=== PATIENT | female | born 1940 | race Caucasian/White ===

== ENCOUNTER 2017-12-29 12:25 | Inpatient (IN) | payer OTHER, BC ==
--- NOTE | 2017-12-29 12:39 | PDOC ---
Attending Attestation - Resident Resident Name: Domingo Mckeon - HPI HPI: 12/29/17 14:51 Pt presents to the ED complaining of coffee grouind emesis that started acutely this AM. Denies bloody bowel movements. Denies abdominal pain. Denies fevers , denies prior episodes of GI bleed. - Physicial Exam PE: 12/29/17 14:52 Agree with residet exam. Patient is alert and oriented and in no acute distress. ABdomen is soft non tender and non distended. + coffee ground emesis in face and on hair. PAtient refusing rectal exam. - Medical Decision Making 12/29/17 14:53 PT presents to the ED complaining of coffee ground emesis. Multiple episodes prior to admission, at least 300 cc as per EMS. Hemodynamically stable with stable HGB, but given her co-morbidities and the multiple episodes of emesis, will consult ICU. STarted on protonix bolus and drip. <Kalyani Winter - Last Filed: 12/29/17 14:50> - ED Attending Attestation I have performed the following: I have examined & evaluated the patient, The case was reviewed & discussed with the resident, I agree w/resident's findings & plan, Exceptions are as noted - HPI HPI: 12/29/17 14:58 The patient is a 77 year old female, with a significant past medical history of diabetes, hypertension, and hypothyroidism, who presents to the emergency department with, coffee ground emesis. As per EMS, she vomited 300cc of coffee ground emesis prior to her presentation. She did not have any bowel movements today. She denies any abdominal pain. She denies recent fevers, chills, headache or dizziness. She denies recent dysuria, frequency, urgency or hematuria. She denies recent chest pain or shortness of breath. <India Ortiz - Last Filed: 12/29/17 14:58>
[2017-12-29] MEDS ORDERED: PANTOPRAZOLE SODIUM 40 MG VIAL IVPUSH ONE (12:40)
[2017-12-29] MEDS ORDERED: PANTOPRAZOLE SODIUM 80 MG in SODIUM CHLORIDE 100 ML IVPB SCH (12:45)
--- NOTE | 2017-12-29 12:48 | PDOC ---
History of Present Illness - General Stated Complaint: Nausea/Vomiting Time Seen by Provider: 12/29/17 12:39 - History of Present Illness Initial Comments: 77 year old with PMH of HTN and NIDDM presenting with coffee ground emesis 2 hours prior to presentation. Patient insists that she is "fine" ut admits to dark coffee ground emesis which is apparent around her mouth. She is easily agitated and refuses certain care measures. She does have a mild headache. However, she denies, chest pain, diarrhea, fevers, chills, cough, SOB, or other symptoms. She has never had this issue before. 12/29/17 14:34 Past History - Past Medical History Allergies/Adverse Reactions: Allergies Allergy/AdvReac Type Severity Reaction Status Date / Time linagliptin [From Tradjenta] Allergy Mild Rash Verified 12/29/17 12:50 amoxicillin [Amoxicillin] Allergy Verified 12/29/17 12:50 ciprofloxacin [From Cipro] Allergy Verified 12/29/17 12:50 ciprofloxacin HCl Allergy Verified 12/29/17 12:50 [From Cipro] doxycycline Allergy Verified 12/29/17 12:50 iron Allergy Verified 12/29/17 12:50 metformin Allergy Verified 12/29/17 12:50 scopolamine Allergy Verified 12/29/17 12:50 [From Transderm-Scop] lactose AdvReac Verified 12/29/17 12:50 Home Medications: Ambulatory Orders Unobtainable 12/29/17 Diabetes: Yes (Type 2) HTN: Yes Thyroid Disease: Yes (Hypothyroidism) - Suicide/Smoking/Psychosocial Hx Smoking History: Never smoked Have you smoked in the past 12 months: No Number of Cigarettes Smoked Daily: 0 Hx Alcohol Use: No Drug/Substance Use Hx: No Substance Use Type: None Review of Systems - Review of Systems Constitutional: No: Chills, Diaphoresis, Fever, Loss of Appetite HEENTM: No: Blurred Vision, Tearing Respiratory: No: Cough, Shortness of Breath, Wheezing Cardiac (ROS): No: Chest Pain, Irregular Heart Rate, Chest Tightness ABD/GI: Yes: Nausea, Vomiting. No: Blood Streaked Bowels, Diarrhea, Poor Fluid Intake, Abdominal cramping : No: Dysuria, Discharge, Frequency Integumentary: No: Bruising, Change in Color, Lesions, Lumps Neurological: Yes: Headache. No: Numbness, Paresthesia Psychiatric: No: Anxiety, Depression Hematologic/Lymphatic: Yes: Easy Bleeding. No: Anemia, Blood Clots *Physical Exam - Physical Exam General Appearance: Yes: Nourished, Appropriately Dressed, Obese. No: Apparent Distress HEENT: positive: EOMI, ALEXANDRO, Normal Voice. negative: Normal ENT Inspection ( dark coffee grounds in mouth and around mouth) Neck: positive: Trachea midline, Normal Thyroid, Supple. negative: Tender, Rigid Respiratory/Chest: positive: Lungs Clear, Normal Breath Sounds. negative: Chest Tender, Respiratory Distress, Accessory Muscle Use Cardiovascular: positive: Regular Rhythm, Regular Rate Gastrointestinal/Abdominal: positive: Normal Bowel Sounds, Flat, Soft. negative : Tender Rectal Exam: positive: deferred Lymphatic: negative: Adenopathy, Tenderness Musculoskeletal: positive: Normal Inspection. negative: Decreased Range of Motion Extremity: positive: Normal Capillary Refill, Normal Inspection, Normal Range of Motion. negative: Tender Integumentary: positive: Normal Color, Dry, Warm Neurologic: positive: Fully Oriented, Alert, Normal Mood/Affect, Normal Response. negative: Motor Strength 5/5 (overlal slightly weak) ED Treatment Course - LABORATORY CBC & Chemistry Diagram: 12/29/17 13:45 12/29/17 13:45 Medical Decision Making - Medical Decision Making 77 year old with coffee ground emesis over the past two hours with no known episodes in the past. VSS and labs WNL. ICU team evaluated patient and they feel that he is not a candidate for the ICU. Patient refused rectal exam to multiple providers. Will admit patient to med surg. Signed patient out to [facility] and spoke to Dr. Musa with consults placed. 12/29/17 14:57 *DC/Admit/Observation/Transfer Diagnosis at time of Disposition: UGIB (upper gastrointestinal bleed), Coffee ground emesis, LILA (acute kidney injury) - Discharge Dispostion Condition at time of disposition: Stable Decision to Admit order: Yes - Referrals Referrals: Maury Chase MD [Primary Care Provider] - - Patient Instructions - Post Discharge Activity
[2017-12-29] MEDS ORDERED: PANTOPRAZOLE SODIUM 40 MG VIAL ONE ×2 (12:59)
[2017-12-29] MEDS ORDERED: ONDANSETRON 4 MG/2 ML VIAL ONE (13:00)
[2017-12-29 13:57] LABS: BASO % 0.3 % (0-2.0); EOS % 0.1 % (0-4.5); HEMATOCRIT 42.9 % (32.4-45.2); HEMOGLOBIN 14.1 GM/dL (10.7-15.3); LYMPH % 4.7 % (8-40); MCH 29.9 pg (25.7-33.7); MCHC 32.9 g/dl (32.0-36.0); MEAN CELL VOLUME 90.8 fl (80-96); MEAN PLT VOLUME 8.6 fl (7.5-11.1); MONO % 2.6 % (3.8-10.2); NEUT % 92.3 % (42.8-82.8); PLATELET COUNT 149 K/MM3 (134-434); RBC 4.72 M/mm3 (3.60-5.2); WHITE BLOOD COUNT 6.8 K/mm3 (4.0-10.0)
[2017-12-29 14:09] LABS: INR 1.21 (0.83-1.09); PROTHROMBIN TIME (PATIENT) 14.3 SEC (9.7-13.0)
[2017-12-29 14:37] LABS: ALBUMIN 3.2 g/dl (3.4-5.0); ALK PHOS 165 U/L (45-117); ANION GAP 8 MMOL/L (8-16); BILIRUBIN,TOTAL 0.7 mg/dL (0.2-1); BLOOD UREA NITROGEN 16 mg/dL (7-18); CALCIUM 8.5 mg/dL (8.5-10.1); CHLORIDE 94 mmol/L (98-107); CO2 32 mmol/L (21-32); GLUCOSE,RANDOM 211 mg/dL (74-106); POTASSIUM 4.2 mmol/L (3.5-5.1); SGOT/AST 24 U/L (15-37); SGPT/ALT 13 U/L (13-61); SODIUM 133 mmol/L (136-145); TOT PROT 7.5 g/dl (6.4-8.2)
--- NOTE | 2017-12-29 15:00 | PN ---
Progress Note (short form) - Note Progress Note: Called to evaluate patient for acute GI bleed. Patient is a 77 year old female with a history of HTN, DMII, and "hemochromatosis", as per patient, presents to ER after an episode of coughing up blood, coffe ground emesis. Patient states that after eating roasted potatoes she felt nauseated and started dry heaving. She said coughed up a small amount of bright red blood, less that a quarter cup. A couple hr later she coughed up coffee grounds, less that a quarter cup. Patient denies taking any NSAIDs. Currently she is hemodynamiclly stable. Hemoglobin 14. Stable no active bleed at this time A/P Acute upper GI bleed. Stable; no active signs of bleed. Management for bleed; protonix drip. GI consult for possible endoscopy. No indication for ICU admission at this time.
--- NOTE | 2017-12-29 16:47 | CON.ID ---
Consult Consult Specialty:: infectious diseases Referred by:: Dr.Martin Tanner Reason for Consultation:: vomiting,hemoptsys, - History of Present Illness Chief Complaint: weakness,vomiting History of Present Illness: 77 year old female with a history of HTN, DMII, and "hemochromatosis", as per patient, presents to ER after an episode of coughing up blood, coffe ground emesis. Patient states that after eating roasted potatoes she felt nauseated and started dry heaving. She said coughed up a small amount of bright red blood , less that a quarter cup. A couple hr later she coughed up coffee grounds, less that a quarter cup. Patient denies taking any NSAIDs. patient mentions that she currently feels fine her family and the aid is in the room - History Source History Provided By: Patient, Family Member Limitations to Obtaining History: No Limitations - Alcohol/Substance Use Hx Alcohol Use: No - Smoking History Smoking history: Never smoked Have you smoked in the past 12 months: No Aproximately how many cigarettes per day: 0 Home Medications - Allergies Allergies/Adverse Reactions: Allergies Allergy/AdvReac Type Severity Reaction Status Date / Time linagliptin [From Tradjenta] Allergy Mild Rash Verified 12/29/17 12:50 amoxicillin [Amoxicillin] Allergy Verified 12/29/17 12:50 ciprofloxacin [From Cipro] Allergy Verified 12/29/17 12:50 ciprofloxacin HCl Allergy Verified 12/29/17 12:50 [From Cipro] doxycycline Allergy Verified 12/29/17 12:50 iron Allergy Verified 12/29/17 12:50 metformin Allergy Verified 12/29/17 12:50 scopolamine Allergy Verified 12/29/17 12:50 [From Transderm-Scop] lactose AdvReac Verified 12/29/17 12:50 - Home Medications Home Medications: Ambulatory Orders Furosemide [Lasix -] 40 mg PO BID 12/30/17 Glipizide 5 mg PO DAILY 12/30/17 Lesinurad [Zurampic] 200 mg PO DAILY 12/30/17 Levothyroxine [Synthroid -] 0.1 mg PO DAILY 12/30/17 Metoprolol Succinate [Toprol XL -] 100 mg PO BID 12/30/17 Review of Systems - Review of Systems Constitutional: reports: No Symptoms Eyes: reports: No Symptoms HENT: reports: No Symptoms Neck: reports: No Symptoms Cardiovascular: reports: No Symptoms Respiratory: reports: No Symptoms Gastrointestinal: reports: Abdominal Pain, Vomiting, Vomiting Blood Genitourinary: reports: No Symptoms Musculoskeletal: reports: No Symptoms Integumentary: reports: No Symptoms Neurological: reports: No Symptoms Endocrine: reports: No Symptoms Hematology/Lymphatic: reports: No Symptoms Psychiatric: reports: No Symptoms Physical Exam Vital Signs: Vital Signs Temperature 96.3 F L 12/29/17 16:22 Pulse Rate 78 12/29/17 16:22 Respiratory Rate 18 12/29/17 16:22 Blood Pressure 134/89 12/29/17 16:22 O2 Sat by Pulse Oximetry (%) 98 12/29/17 16:22 Constitutional: Yes: Well Nourished, No Distress, Calm, Obese Cardiovascular: Yes: Regular Rate and Rhythm Respiratory: Yes: Regular, Poor Air Entry (bases) Gastrointestinal: Yes: Soft, Hypoactive Bowel Sounds Musculoskeletal: Yes: WNL Extremities: Yes: WNL Neurological: Yes: Alert, Oriented Psychiatric: Yes: Alert, Oriented Labs: CBC, BMP 12/29/17 13:45 12/29/17 13:45 Assessment/Plan looking at the patients symptoms could be miguel goodwin or just forcible vomiting low chance of aspiration as patient is awake and al;ert vomiting nausea UGIB (upper gastrointestinal bleed) Code(s): K92.2 - GASTROINTESTINAL HEMORRHAGE, UNSPECIFIED abd pain plan will watch the patient no abx at this time will await for all the results gi to see the patient monitor for any cough/wbc
--- NOTE | 2017-12-29 17:45 | HP ---
Admitting History and Physical - Admission Chief Complaint: n/v with bpood coffee ground x 1 day this am. denies any other complaints History Source: Patient Limitations to Obtaining History: Other (w/c bound) - Past Medical History Cardiovascular: Yes: HTN Hepatobiliary: Yes: Other (high alp) Renal/: Yes: Other (crf ?) Endocrine: Yes: Other (vit d levels always low refusing vit) - Past Surgical History Past Surgical History: Yes: None - Smoking History Smoking history: Never smoked Have you smoked in the past 12 months: No Aproximately how many cigarettes per day: 0 - Alcohol/Substance Use Hx Alcohol Use: No History of Substance Use: reports: None - Social History Usual Living Arrangement: Yes: Alone, Other (has home attendent daily) Home Medications - Allergies Allergies/Adverse Reactions: Allergies Allergy/AdvReac Type Severity Reaction Status Date / Time linagliptin [From Tradjenta] Allergy Mild Rash Verified 12/29/17 12:50 amoxicillin [Amoxicillin] Allergy Verified 12/29/17 12:50 ciprofloxacin [From Cipro] Allergy Verified 12/29/17 12:50 ciprofloxacin HCl Allergy Verified 12/29/17 12:50 [From Cipro] doxycycline Allergy Verified 12/29/17 12:50 iron Allergy Verified 12/29/17 12:50 metformin Allergy Verified 12/29/17 12:50 scopolamine Allergy Verified 12/29/17 12:50 [From Transderm-Scop] lactose AdvReac Verified 12/29/17 12:50 - Home Medications Home Medications: Ambulatory Orders Unobtainable 12/29/17 Family Disease History - Family Disease History Family History: Unremarkable Review of Systems - Review of Systems Gastrointestinal: reports: Vomiting Blood Physical Examination Vital Signs: Vital Signs Temperature 96.3 F L 12/29/17 16:22 Pulse Rate 78 12/29/17 16:22 Respiratory Rate 18 12/29/17 16:22 Blood Pressure 134/89 12/29/17 16:22 O2 Sat by Pulse Oximetry (%) 98 12/29/17 16:22 Constitutional: Yes: Obese Eyes: Yes: WNL HENT: Yes: WNL Neck: Yes: WNL Cardiovascular: Yes: WNL Respiratory: Yes: WNL Gastrointestinal: Yes: WNL ...Rectal Exam: Yes: Deferred Renal/: Yes: WNL Breast(s): Yes: WNL Musculoskeletal: Yes: WNL Extremities: Yes: Other (chelsey weak) Edema: Yes Edema: LLE: 2+, RLE: 2+ Peripheral Pulses WNL: Yes Integumentary: Yes: WNL, Venous Stasis Changes, Other (breast crusty rash chronic) Neurological: Yes: Other (weak legs) ...Motor Strength: WNL Psychiatric: Yes: WNL Labs: CBC, BMP 12/29/17 13:45 12/29/17 13:45 Assessment/Plan sono abd id gi f/u npo sx f/u ppi iv labs in am na ? dilutional no iv yet
[2017-12-29 17:53] VITALS: BMI 40.4
--- NOTE | 2017-12-29 18:36 | CON.GI ---
Consult Consult Specialty:: GI Referred by:: Dr Inder Chase - History of Present Illness History of Present Illness: 77 y/o female with PMH of DM was admitted because of intractable vomiting associated with mild hematemesis. The aid could not rule out secondary to the Padilla bits she ate. This evening she is asymptomatic and wants to eat. - Past Medical History Cardio/Vascular: Yes: HTN Hepatobiliary: Yes: Other (high alp) Renal/: Yes: Other (crf ?) ...: No Endocrine: Yes: Other (vit d levels always low refusing vit) - Past Surgical History Past Surgical History: Yes: None - Alcohol/Substance Use Hx Alcohol Use: No History of Substance Use: reports: None - Smoking History Smoking history: Never smoked Have you smoked in the past 12 months: No Aproximately how many cigarettes per day: 0 Home Medications - Allergies Allergies/Adverse Reactions: Allergies Allergy/AdvReac Type Severity Reaction Status Date / Time linagliptin [From Tradjenta] Allergy Mild Rash Verified 12/29/17 12:50 amoxicillin [Amoxicillin] Allergy Verified 12/29/17 12:50 ciprofloxacin [From Cipro] Allergy Verified 12/29/17 12:50 ciprofloxacin HCl Allergy Verified 12/29/17 12:50 [From Cipro] doxycycline Allergy Verified 12/29/17 12:50 iron Allergy Verified 12/29/17 12:50 metformin Allergy Verified 12/29/17 12:50 scopolamine Allergy Verified 12/29/17 12:50 [From Transderm-Scop] lactose AdvReac Verified 12/29/17 12:50 - Home Medications Home Medications: Ambulatory Orders Unobtainable 12/29/17 Physical Exam-GI Vital Signs: Vital Signs Temperature 97.6 F 12/29/17 17:37 Pulse Rate 68 12/29/17 17:37 Respiratory Rate 20 12/29/17 17:37 Blood Pressure 133/73 12/29/17 17:37 O2 Sat by Pulse Oximetry (%) 100 12/29/17 17:59 Constitutional: Yes: Well Nourished Eyes: Yes: Conjunctiva Clear HENT: Yes: Atraumatic Neck: Yes: Supple Cardiovascular: Yes: Regular Rate and Rhythm Respiratory: Yes: CTA Bilaterally ...Auscultate: No: No Bowel Sounds ...Palpate: Yes: Soft. No: Guarding, Hepatomegaly, Mass, Pulsatile Mass, Splenomegaly, Tenderness Labs: CBC, BMP 12/29/17 13:45 12/29/17 13:45 INR, PTT INR 1.21 (0.83-1.09) H 12/29/17 13:45 Problem List - Problems (1) UGIB (upper gastrointestinal bleed) Assessment/Plan: r/o secondary to Yadira Wood Tear R> will need EGD to rule out PUD and malignancy, patient refused. Her brother was aware Protonix 40mg daily Reglan 5mg 30 min ac d/w Dr Inder Chase Code(s): K92.2 - GASTROINTESTINAL HEMORRHAGE, UNSPECIFIED
[2017-12-29] MEDS ORDERED: METOCLOPRAMIDE HCL INJECTION 10 MG/2 ML VIAL IVPB SCH (18:45)
[2017-12-29] MEDS: ONDANSETRON 4 MG/2 ML VIAL IVPUSH SCH ×2 (18:52→21:55)
[2017-12-30] MEDS: METOCLOPRAMIDE HCL INJECTION 10 MG/2 ML VIAL IVPUSH SCH ×3 (01:24→17:11)
[2017-12-30] MEDS: ONDANSETRON 4 MG/2 ML VIAL IVPUSH SCH ×2 (01:24→05:39)
[2017-12-30 07:08] LABS: HEMATOCRIT 37.3 % (32.4-45.2); HEMOGLOBIN 12.3 GM/dL (10.7-15.3); MCH 29.8 pg (25.7-33.7); MCHC 32.9 g/dl (32.0-36.0); MEAN CELL VOLUME 90.7 fl (80-96); MEAN PLT VOLUME 8.5 fl (7.5-11.1); PLATELET COUNT 130 K/MM3 (134-434); RBC 4.11 M/mm3 (3.60-5.2); RDW 16.2 % (11.6-15.6); WHITE BLOOD COUNT 6.9 K/mm3 (4.0-10.0)
[2017-12-30 08:16] LABS: ALBUMIN 2.7 g/dl (3.4-5.0); ALK PHOS 133 U/L (45-117); ANION GAP 8 MMOL/L (8-16); BILIRUBIN,TOTAL 0.9 mg/dL (0.2-1); BLOOD UREA NITROGEN 14 mg/dL (7-18); CALCIUM 8.5 mg/dL (8.5-10.1); CHLORIDE 98 mmol/L (98-107); CO2 32 mmol/L (21-32); CREATININE 1.8 mg/dL (0.55-1.3); GLUCOSE,RANDOM 97 mg/dL (74-106); POTASSIUM 3.4 mmol/L (3.5-5.1); SGOT/AST 11 U/L (15-37); SGPT/ALT 11 U/L (13-61); SODIUM 138 mmol/L (136-145); TOT PROT 6.2 g/dl (6.4-8.2)
--- NOTE | 2017-12-30 09:51 | PN ---
Progress Note, Physician History of Present Illness: stable refusing all medications and procedures gi note noted main complaint is headache - Current Medication List Current Medications: Active Medications Metoclopramide HCl (Reglan Injection -) 10 mg IVPUSH Q8H-IV [facility] Last Admin: 12/30/17 01:24 Dose: Not Given Metoprolol Succinate (Toprol Xl -) 50 mg PO DAILY [facility] Ondansetron HCl (Zofran Injection) 4 mg IVPUSH Q4H PRN PRN Reason: NAUSEA AND/OR VOMITING Pantoprazole Sodium (Protonix Iv) 40 mg IVPUSH DAILY [facility] - Objective Vital Signs: Vital Signs Temperature 98.4 F 12/30/17 09:48 Pulse Rate 82 12/30/17 09:48 Respiratory Rate 20 12/30/17 09:48 Blood Pressure 90/54 L 12/30/17 09:48 O2 Sat by Pulse Oximetry (%) 100 12/29/17 21:00 Constitutional: Yes: No Distress, Calm, Obese Cardiovascular: Yes: S1, S2 Respiratory: Yes: Regular, CTA Bilaterally Gastrointestinal: Yes: Normal Bowel Sounds, Soft Musculoskeletal: Yes: WNL Extremities: Yes: WNL Neurological: Yes: Alert, Oriented Psychiatric: Yes: Alert, Oriented Labs: CBC, BMP 12/30/17 06:30 12/30/17 06:30 INR, PTT INR 1.21 (0.83-1.09) H 12/29/17 13:45 Assessment/Plan vomiting nausea UGIB (upper gastrointestinal bleed) Code(s): K92.2 - GASTROINTESTINAL HEMORRHAGE, UNSPECIFIED abd pain headaches plan continue monitoring rest as per the team patient stable
[2017-12-30] MEDS ORDERED: ONDANSETRON 4 MG/2 ML VIAL IVPUSH PRN (10:00)
--- NOTE | 2017-12-30 10:37 | PN ---
Progress Note, Physician Chief Complaint: py now states she had bad headache occipital witch cause n/v now no complaints low bp - Current Medication List Current Medications: Active Medications Metoclopramide HCl (Reglan Injection -) 10 mg IVPUSH Q8H-IV K[facility] Last Admin: 12/30/17 01:24 Dose: Not Given Metoprolol Succinate (Toprol Xl -) 50 mg PO DAILY [facility] Ondansetron HCl (Zofran Injection) 4 mg IVPUSH Q4H PRN PRN Reason: NAUSEA AND/OR VOMITING Pantoprazole Sodium (Protonix Iv) 40 mg IVPUSH DAILY [facility] - Objective Vital Signs: Vital Signs Temperature 98.4 F 12/30/17 09:48 Pulse Rate 82 12/30/17 09:48 Respiratory Rate 20 12/30/17 09:48 Blood Pressure 90/54 L 12/30/17 09:48 O2 Sat by Pulse Oximetry (%) 100 12/29/17 21:00 Constitutional: Yes: Well Nourished HENT: Yes: WNL Neck: Yes: Tenderness Respiratory: Yes: WNL Gastrointestinal: Yes: WNL Breast(s): Yes: WNL Extremities: Yes: WNL Edema: Yes Edema: LLE: 1+, RLE: 1+ Peripheral Pulses WNL: Yes Integumentary: Yes: WNL Neurological: Yes: WNL Psychiatric: Yes: WNL Labs: CBC, BMP 12/30/17 06:30 12/30/17 06:30 INR, PTT INR 1.21 (0.83-1.09) H 12/29/17 13:45 Assessment/Plan advance diet to see if tolerated ct brain no contrast pt vrefusing egd despite excplaining importance doing it ? d/c in am sharlene resume all other meds i got from my office chart on her will watrch bp
[2017-12-30] MEDS ORDERED: POTASSIUM CHLORIDE TABS 10 MEQ TABLET.ER (FP) PO ONE (10:38)
[2017-12-30] MEDS: PANTOPRAZOLE SODIUM 40 MG VIAL IVPUSH SCH (11:53)
--- NOTE | 2017-12-30 13:06 | EKG ---
Test Reason : Blood Pressure : / mmHG Vent. Rate : 056 BPM Atrial Rate : 056 BPM P-R Int : 210 ms QRS Dur : 098 ms QT Int : 554 ms P-R-T Axes : -18 041 047 degrees QTc Int : 534 ms SINUS BRADYCARDIA WITH 1ST DEGREE A-V BLOCK PROLONGED QT ABNORMAL ECG WHEN COMPARED WITH ECG OF 26-DEC-2014 14:02, NO SIGNIFICANT CHANGE WAS FOUND Confirmed by MD AMARILYS, YADI ([id number]) on 12/30/2017 1:05:55 PM Referred By: Confirmed By:YADI PANDA MD
[2017-12-30] MEDS: FUROSEMIDE 20 MG TABLET (FP) PO SCH (13:51)
[2017-12-30] MEDS ORDERED: FUROSEMIDE 20 MG TABLET (FP) PO ONE (20:45)
[2017-12-30] MEDS ORDERED: POLYETHYLENE GLYCOL 3350 119 GM BTL PO ONE (21:00)
[2017-12-31] MEDS: METOCLOPRAMIDE HCL INJECTION 10 MG/2 ML VIAL IVPUSH SCH ×2 (01:43→10:06)
[2017-12-31] MEDS: FUROSEMIDE 20 MG TABLET (FP) PO SCH ×2 (06:23→06:35)
[2017-12-31] MEDS ORDERED: glipiZIDE 5 MG TABLET (FP) PO SCH (07:00)
[2017-12-31] MEDS ORDERED: LEVOTHYROXINE NA 100 MCG TABLET (FP) PO SCH (07:00)
--- NOTE | 2017-12-31 08:16 | PN ---
Progress Note (short form) - Note Progress Note: surgery 77f morbidly obese, with known gallstones from 2015, presents with cofee ground emesis triggered by rossi bits and a head-ache. GI recommends egd to r/o miguel goodwin, pud, gastric ca. Pt refusing egd, rectal exam, and multiple medications. u/s now shows gallstones without signs of cholecystitis. Plan- can consider elective cholecystectomy for possible biliary colic after egd.
[2017-12-31 08:34] LABS: ANION GAP 11 MMOL/L (8-16); BLOOD UREA NITROGEN 13 mg/dL (7-18); CALCIUM 8.5 mg/dL (8.5-10.1); CHLORIDE 99 mmol/L (98-107); CO2 31 mmol/L (21-32); CREATININE 1.9 mg/dL (0.55-1.3); GLUCOSE,RANDOM 99 mg/dL (74-106); POTASSIUM 3.5 mmol/L (3.5-5.1); SODIUM 140 mmol/L (136-145)
[2017-12-31] MEDS: PANTOPRAZOLE SODIUM 40 MG VIAL IVPUSH SCH (10:06)
[2017-12-31] MEDS ORDERED: METOCLOPRAMIDE HCL 10 MG TABLET (FP) PO SCH (11:00)
--- NOTE | 2017-12-31 11:18 | PN ---
Progress Note, Physician History of Present Illness: stable wants to go home seen by surgery patient has refused all work up no nausea or vomiting now headaches have resolved - Current Medication List Current Medications: Active Medications Furosemide (Lasix -) 20 mg PO BID@0600,1400 [facility] Last Admin: 12/31/17 06:35 Dose: Not Given Glipizide (Glucotrol -) 5 mg PO DAILY@0700 [facility] Last Admin: 12/31/17 06:23 Dose: 5 mg Levothyroxine Sodium (Synthroid -) 100 mcg PO DAILY@0700 [facility] Last Admin: 12/31/17 06:23 Dose: 100 mcg Metoclopramide HCl (Reglan -) 10 mg PO TIDAC [facility] Metoprolol Succinate (Toprol Xl -) 50 mg PO DAILY [facility] Last Admin: 12/31/17 10:07 Dose: 50 mg Ondansetron HCl (Zofran Injection) 4 mg IVPUSH Q4H PRN PRN Reason: NAUSEA AND/OR VOMITING Pantoprazole Sodium (Protonix -) 40 mg PO DAILY [facility] - Objective Vital Signs: Vital Signs Temperature 98.4 F 12/31/17 07:12 Pulse Rate 80 12/31/17 07:12 Respiratory Rate 20 12/31/17 07:12 Blood Pressure 120/84 12/31/17 07:12 O2 Sat by Pulse Oximetry (%) 96 12/30/17 21:00 Constitutional: Yes: No Distress, Calm, Obese Cardiovascular: Yes: S1, S2 Respiratory: Yes: Regular, CTA Bilaterally Gastrointestinal: Yes: Normal Bowel Sounds, Soft Musculoskeletal: Yes: WNL Extremities: Yes: WNL Neurological: Yes: Alert, Oriented Psychiatric: Yes: Alert, Oriented Labs: CBC, BMP 12/30/17 06:30 12/31/17 06:30 INR, PTT INR 1.21 (0.83-1.09) H 12/29/17 13:45 Assessment/Plan vomiting nausea UGIB (upper gastrointestinal bleed) Code(s): K92.2 - GASTROINTESTINAL HEMORRHAGE, UNSPECIFIED abd pain headaches plan continue monitoring rest as per the team patient stable
[2017-12-31 11:29] VITALS: BP 128/78; PULSE 85; TEMP 98.1
--- NOTE | 2017-12-31 13:03 | DS ---
Physical Examination Vital Signs: Vital Signs Temperature 98.1 F 12/31/17 09:00 Pulse Rate 85 12/31/17 09:00 Respiratory Rate 18 12/31/17 09:00 Blood Pressure 128/78 12/31/17 09:00 O2 Sat by Pulse Oximetry (%) 96 12/31/17 09:00 Constitutional: Yes: Well Nourished Eyes: Yes: WNL HENT: Yes: WNL Neck: Yes: WNL Cardiovascular: Yes: WNL Respiratory: Yes: WNL ...Rectal Exam: Yes: Deferred Renal/: Yes: WNL Breast(s): Yes: WNL Musculoskeletal: Yes: WNL Extremities: Yes: WNL Edema: Yes Edema: LLE: 1+, RLE: 1+ Integumentary: Yes: WNL Neurological: Yes: WNL Psychiatric: Yes: WNL Labs: CBC, BMP 12/30/17 06:30 12/31/17 06:30 Discharge Summary Reason For Visit: ACUTE KIDNEY INJURY,UPPER GI BLEED,COFFEE GROUND Current Active Problems LILA (acute kidney injury) (Acute) Coffee ground emesis (Acute) UGIB (upper gastrointestinal bleed) (Acute) Condition: Stable - Instructions Diet, Activity, Other Instructions: f/u w me friday 1200 noon cont all meds as is at home d/c today pt refusing egd still Referrals: Maury Chase MD [Staff Physician] - Disposition: VNS/HOME HEALTH CARE - Home Medications Comprehensive Discharge Medication List: Ambulatory Orders Furosemide [Lasix -] 40 mg PO BID 12/30/17 Glipizide 5 mg PO DAILY 12/30/17 Lesinurad [Zurampic] 200 mg PO DAILY 12/30/17 Levothyroxine [Synthroid -] 0.1 mg PO DAILY 12/30/17 Metoprolol Succinate [Toprol XL -] 100 mg PO BID 12/30/17 Furosemide [Lasix -] 20 mg PO BID@0600,1400 tablet 12/31/17 Glipizide [Glucotrol -] 5 mg PO DAILY@0700 tablet 12/31/17 Levothyroxine [Synthroid -] 100 mcg PO DAILY@0700 tablet 12/31/17 Metoclopramide HCl Injection [Reglan Injection -] 10 mg IVPUSH Q8H-IV vial Metoprolol Succinate [Toprol XL -] 50 mg PO DAILY tab.sr.24h 12/31/17 Pantoprazole Sodium [Protonix -] 40 mg PO DAILY tablet.ec 12/31/17
[2017-12-31] MEDS ORDERED: FUROSEMIDE 40 MG TABLET (FP) PO SCH (14:00)
[2018-01-01] MEDS ORDERED: LEVOTHYROXINE NA 100 MCG TABLET (FP) PO SCH (07:00)
[2018-01-01] MEDS ORDERED: glipiZIDE 5 MG TABLET (FP) PO SCH (07:00)
[2018-01-01] MEDS ORDERED: PANTOPRAZOLE 40 MG TABLET (FP) PO SCH (10:00)
== END 2017-12-31 17:20 | disposition home health service (06) | DRG 378 ==
LOC: SUPCPDRO 12:25 → JER 12:25 → JERBED 13:56 → J8W 17:09
PROVIDERS: ADMIT Family Medicine; ATTEND Family Medicine
DX: K92.2 Gastrointestinal hemorrhage, unspecified (principal); Z68.41 Body mass index [BMI] 40.0-44.9, adult; N17.9 Acute kidney failure, unspecified; E11.9 Type 2 diabetes mellitus without complications; I10 Essential (primary) hypertension; E03.9 Hypothyroidism, unspecified; Z99.3 Dependence on wheelchair; R51 Headache; E66.01 Morbid (severe) obesity due to excess calories; E83.119 Hemochromatosis, unspecified; K80.20 Calculus of gallbladder without cholecystitis without obstruction
CPT/HCPCS: 36415; 71045-TC-FY; 76705-TC; 76856-TC; 80048; 80053; 82962; 83036; 85025; 85027; 85610; 86850; 86900; 86901; 93005; 93010; 99284-25

== ENCOUNTER 2018-06-11 16:44 | Emergency (ER) | payer OTHER, BC ==
[2018-06-11 17:18] VITALS: BMI 42.5
--- NOTE | 2018-06-11 17:18 | PDOC ---
History of Present Illness - General Chief Complaint: Nausea/Vomiting Stated Complaint: VOMIT - History of Present Illness Initial Comments: The pt is a 78F w/ a history of HTN, hypothyroidism, GI-bleed, T2DM who presents for evaluation of 3 hours of vomiting this afternoon. The patient reports eating at a deli this morning and 2-3 hours later developing nausea and multiple episodes of vomiting. Emesis was NBNB. Denies diarrhea, abdominal pain , chest pain or trouble breathing. In the ED, she denies any symptoms or complaints. No one else ate what she did, the only new food today was mushrooms from this deli. 06/11/18 17:37 Past History - Past Medical History Allergies/Adverse Reactions: Allergies Allergy/AdvReac Type Severity Reaction Status Date / Time linagliptin [From Tradjenta] Allergy Mild Rash Verified 06/11/18 17:13 amoxicillin [Amoxicillin] Allergy Verified 06/11/18 17:13 ciprofloxacin [From Cipro] Allergy Verified 06/11/18 17:13 ciprofloxacin HCl Allergy Verified 06/11/18 17:13 [From Cipro] doxycycline Allergy Verified 06/11/18 17:13 iron Allergy Verified 06/11/18 17:13 metformin Allergy Verified 06/11/18 17:13 scopolamine Allergy Verified 06/11/18 17:13 [From Transderm-Scop] lactose AdvReac Verified 06/11/18 17:13 Home Medications: Ambulatory Orders Furosemide [Lasix -] 40 mg PO BID 12/30/17 Levothyroxine [Synthroid -] 0.1 mg PO DAILY 12/30/17 Metoprolol Succinate [Toprol XL -] 100 mg PO BID 12/30/17 Glipizide [Glucotrol -] 5 mg PO DAILY@0700 tablet 12/31/17 Pantoprazole Sodium [Protonix -] 40 mg PO DAILY tablet.ec 12/31/17 CVA: Yes (Small TIA's) COPD: No Diabetes: Yes (Type 2) HTN: Yes Thyroid Disease: Yes (Hypothyroidism) - Surgical History Orthopedic Surgery: Yes (Fracture left ankle, Right shoulder, no surgery, Fracture ribs) - Immunization History Immunization Up to Date: Yes - Suicide/Smoking/Psychosocial Hx Smoking History: Never smoked Have you smoked in the past 12 months: No Number of Cigarettes Smoked Daily: 0 Information on smoking cessation initiated: No Hx Alcohol Use: No Drug/Substance Use Hx: No Substance Use Type: None Hx Substance Use Treatment: No Review of Systems - Review of Systems Able to Perform ROS?: Yes Comments:: GENERAL/CONSTITUTIONAL: No fever or chills HEAD, EYES, EARS, NOSE AND THROAT: No change in vision. No ear pain or discharge. No sore throat CARDIOVASCULAR: No chest pain or shortness of breath RESPIRATORY: Denies cough, hemoptysis GENITOURINARY: No dysuria, frequency, or change in urination MUSCULOSKELETAL: No joint or muscle swelling or pain. No neck or back pain SKIN: No rash NEUROLOGIC: No headache, vertigo, loss of consciousness, or change in strength/ sensation ENDOCRINE: No increased thirst. No abnormal weight change HEMATOLOGIC/LYMPHATIC: No anemia, easy bleeding, or history of blood clots ALLERGIC/IMMUNOLOGIC: No hives or skin allergy 06/11/18 17:46 Is the patient limited [place]orese proficient: No *Physical Exam - Vital Signs Last Vital Signs Temp Pulse Resp BP Pulse Ox 74 16 130/72 100 06/11/18 17:00 06/11/18 17:00 06/11/18 17:00 06/11/18 17:00 - Physical Exam Comments: GENERAL: Awake, alert, and oriented to person/place/time, in no acute distress HEAD: No signs of trauma, normocephalic, atraumatic EYES: PERRLA, EOMI, sclera anicteric, conjunctiva clear ENT: Hearing grossly normal, nares patent, oropharynx clear without exudates. Dry mucosa w/ crusting LUNGS: No distress, speaks full sentences, clear to auscultation bilaterally HEART: Regular rate and rhythm, normal S1 and S2, no murmurs appreciated, peripheral pulses normal and equal bilaterally ABDOMEN: Soft, nontender, normoactive bowel sounds. No guarding, no rebound EXTREMITIES: Normal inspection, Normal range of motion, no edema. No clubbing or cyanosis NEUROLOGICAL: Cranial nerves II through XII grossly intact. Normal speech, no focal sensorimotor deficits SKIN: Warm, Dry 06/11/18 17:47 ED Treatment Course - LABORATORY CBC & Chemistry Diagram: 06/11/18 17:58 06/11/18 20:40 Medical Decision Making - Medical Decision Making The pt is a 78F w/ a history of HTN, hypothyroidism, T2DM, and GI bleed who presents for evaluation of 3 hours of vomiting today from [id number]. ED Course CMP, CBC, Trop I, Mg ECG CXR 06/11/18 17:47 Cr 2.2/BUN elevated, likely pre-renal LILA -1L NS Trop I neg No leukocytosis No anemia 06/11/18 18:37 ECG w/ 1st degree block, HR 75; QTc 547, will avoid QTc prolonging medications Will repeat BMP s/p fluids 06/11/18 18:50 I have transferred care of the patient to Dr. Bucio and discussed the clinical presentation, work-up and ED course thus far. *DC/Admit/Observation/Transfer Diagnosis at time of Disposition: Nausea & vomiting Qualifiers: Vomiting type: unspecified Vomiting Intractability: non-intractable Qualified Code(s): R11.2 - Nausea with vomiting, unspecified - Discharge Dispostion Disposition: HOME Condition at time of disposition: Good Decision to Admit order: No - Referrals - Patient Instructions Printed Discharge Instructions: DI for Vomiting -- Adult Additional Instructions: Your were seen today for nausea and vomiting. Your blood work showed a slight elevation in one of your kidney markers. We have you IV fluid and repeated the test. The numbers improved slightly, and are near where your kidney markers were last time you at this hospital. Your symptoms today were likely caused by a stomach virus. Please continue to drink fluids (water, Gatorade, etc) to stay hydrated. You can try and eat a small bland meal (crackers, etc) after you have stopped vomiting for 12 hours. Return to the emergency room if your vomiting becomes much worse and you are no longer able to keep fluids down, if you begin to feel dehydrated, if you develop a fever, pass out, become disoriented, begin vomiting blood, have bloody diarrhea, or you feel like you need additional emergency care. You can also see your primary care doctor if your symptoms do not improve. Print Language: ALBANIAN - Post Discharge Activity
--- NOTE | 2018-06-11 17:44 | PDOC ---
Attending Attestation - HPI HPI: 06/11/18 17:55 The patient is a 78 YOF with a PMH of HTN, hypothyroidism, GI bleed, and DM who presents with multiple episodes of NB, NB vomit from 1pm to 4pm. The patient states she ate at a deli this morning. Denies any symptoms while here in the ER. The patient denies chest pain, shortness of breath, headache and dizziness. Denies fever, chills, nausea, vomit, diarrhea and constipation. Denies dysuria, frequency, urgency and hematuria. Allergies: NKA Past surgical history: None reported. Social history: No reported alcohol, drug or cigarette PCP: - Physicial Exam PE: 06/11/18 19:13 ADULT PHYSICAL EXAM Constitutional: Awake, alert, oriented. No acute distress. (+) Hard of hearing. Head: Normocephalic. Atraumatic Eyes: PERRL. EOMI. Conjunctivae are not pale. ENT:(+) Dry, cracked lips and tongue. Posterior pharynx without exudates or erythema. Uvula midline. Neck: Supple. Full ROM. No lymphadenopathy. Cardiovascular: Regular rate. Regular rhythm. S1, S2 regular. Distal pulses are 2+ and symmetric. Pulmonary/Chest: No evidence of respiratory distress. Clear to auscultation bilaterally No wheezing, rales or rhonchi. Abdominal: (+) Obese but soft and non-distended. There is no tenderness. No rebound, guarding or rigidity. No organomegaly. No palpable masses. Good bowel sounds. Back: No CVA tenderness. Musculoskeletal: No edema. No cyanosis. No clubbing. Full range of motion in all extremities. Nocalf tenderness. Radial/pedal pulses are intact and 2+ bilaterally Skin: Skin is warm and dry. No petechiae. (+) Bruise on the right knee. Neurological: Alert and oriented to person, place, and time. Cranial nerves II -XII are grossly intact. Normal speech. Strength is grossly symmetric. No sensory deficits. Psychiatric: Good eye contact. Normal interaction, affect and behavior. <Angela Hollingsworth - Last Filed: 06/11/18 19:13> - Resident Resident Name: Charan Johnson - ED Attending Attestation I have performed the following: I have examined & evaluated the patient, The case was reviewed & discussed with the resident, I agree w/resident's findings & plan, Exceptions are as noted - Medical Decision Making 06/11/18 17:42 I, Dr. Donna Bui, DO, attest that this document has been prepared under my direction and personally reviewed by me in its entirety. I further attest, that it accurately reflects all work, treatment, procedures and medical decision -making performed by me. 06/11/18 18:59 a/p: 78yo female with n/v after eating a mushroom sandwich with feta cheese at the [facility] earlier today -no abd pain, no diarrhea -pt denies all complaints at this time, but has a dry cracked lips and tongue -pt asking to eat and drink -will send labs, ekg, cxr, trop -will po challenge -will give ivf hydration -will monitor and reassess 06/11/18 19:12 pt with mild LILA- receiving IVF hydration will repeat chem prior to dc 06/11/18 21:45 pt feeling better after ivf hydration pt has po tolerated stable for dc to home <Donna Bui - Last Filed: 06/11/18 21:46> Heart Score/ECG Review - ECG Intrepretation Comment:: 06/11/18 17:42 sinus at 75, 1st degree av block, qtc 547, nl axis, no acute st/t wave findings <Donna Bui - Last Filed: 06/11/18 21:46>
[2018-06-11 18:07] LABS: HEMATOCRIT 36.4 % (32.4-45.2); MCH 29.4 pg (25.7-33.7); MEAN PLT VOLUME 8.9 fl (7.5-11.1); PLATELET COUNT 149 K/MM3 (134-434); RBC 4.09 M/mm3 (3.60-5.2); RDW 14.5 % (11.6-15.6); WHITE BLOOD COUNT 9.7 K/mm3 (4.0-10.0)
[2018-06-11] MEDS ORDERED: SODIUM CHLORIDE 0.9% 500 ML INFUS.BAG IV ONE ×2 (18:10→19:46)
[2018-06-11 18:13] VITALS: TEMP 97.2
[2018-06-11 18:34] LABS: ALBUMIN 2.9 g/dl (3.4-5.0); ALK PHOS 204 U/L (45-117); ANION GAP 9 MMOL/L (8-16); BILIRUBIN,TOTAL 0.6 mg/dL (0.2-1); BLOOD UREA NITROGEN 29 mg/dL (7-18); CALCIUM 8.3 mg/dL (8.5-10.1); CHLORIDE 94 mmol/L (98-107); CO2 28 mmol/L (21-32); CREATININE 2.2 mg/dL (0.55-1.3); GLUCOSE,RANDOM 154 mg/dL (74-106); MAGNESIUM 2.3 mg/dL (1.8-2.4); POTASSIUM 4.2 mmol/L (3.5-5.1); SGOT/AST 14 U/L (15-37); SGPT/ALT 11 U/L (13-61); SODIUM 132 mmol/L (136-145)
--- NOTE | 2018-06-11 19:12 | PDOC ---
*Physical Exam - Vital Signs Vital Signs (72 hours) 06/11/18 06/11/18 17:00 22:06 Temperature 97.2 F L Pulse Rate 74 Pulse Rate [ 78 Left] Respiratory 16 Rate Blood Pressure 130/72 Blood Pressure 117/75 [Left Arm] O2 Sat by Pulse 100 Oximetry (%) - Physical Exam General Appearance: No: Apparent Distress Neck: positive: Supple Respiratory/Chest: negative: Respiratory Distress Cardiovascular: positive: Regular Rhythm, Regular Rate Gastrointestinal/Abdominal: negative: Tender Integumentary: positive: Normal Color Neurologic: positive: Fully Oriented, Alert, Normal Mood/Affect, Normal Response ED Treatment Course - LABORATORY CBC & Chemistry Diagram: 06/11/18 17:58 06/11/18 20:40 - ADDITIONAL ORDERS Additional order review: 06/11/18 06/11/18 20:40 17:58 Sodium 135 L 132 L Potassium 4.3 4.2 Chloride 98 94 L Carbon Dioxide 29 28 Anion Gap 8 9 BUN 28 H 29 H Creatinine 2.1 H 2.2 H Creat Clearance w eGFR 22.90 21.70 Random Glucose 104 154 H Calcium 8.1 L 8.3 L Magnesium 2.3 Total Bilirubin 0.6 AST 14 L ALT 11 L Alkaline Phosphatase 204 H Troponin I < 0.02 Total Protein 7.0 Albumin 2.9 L 06/11/18 17:58 RBC 4.09 MCV 89.0 MCHC 33.0 RDW 14.5 D MPV 8.9 - Medications Given in the ED: ED Medications Discontinued Medications Generic Name Dose Route Start Last Admin Trade Name Freq PRN Reason Stop Dose Admin Sodium Chloride 1,000 ml 06/11/18 18:10 06/11/18 18:17 Normal Saline - IV 06/11/18 18:11 1,000 ml ONCE ONE Administration Sodium Chloride 1,000 ml 06/11/18 19:46 06/11/18 19:51 Normal Saline - IV 06/11/18 19:47 1,000 ml ONCE ONE Administration Medical Decision Making - Medical Decision Making 06/11/18 19:09 Received sign out from resident Dr. Johnson. In short, pt is a 78 y/o female presenting with resolved nausea/vomiting without concerning features. CMP revealed possible LILA. Pt is currently receiving IVFB. Will repeat BMP after completing bolus. Administered second 1L NS IVFB and large glass of water. Pt able to tolerate PO without further nausea or vomiting. States she feels much better. Repeat BMP showed ever so slight decreased in BUN and Cr. Both appear to be at baseline documented in [employer]. Repeat labs unremarkable for hypotension or tachycardia. Will encourage pt to follow up with PCP. *DC/Admit/Observation/Transfer Diagnosis at time of Disposition: Nausea & vomiting Qualifiers: Vomiting type: unspecified Vomiting Intractability: non-intractable Qualified Code(s): R11.2 - Nausea with vomiting, unspecified - Discharge Dispostion Disposition: HOME Condition at time of disposition: Good Decision to Admit order: No - Referrals - Patient Instructions Printed Discharge Instructions: DI for Vomiting -- Adult Additional Instructions: Your were seen today for nausea and vomiting. Your blood work showed a slight elevation in one of your kidney markers. We have you IV fluid and repeated the test. The numbers improved slightly, and are near where your kidney markers were last time you at this hospital. Your symptoms today were likely caused by a stomach virus. Please continue to drink fluids (water, Gatorade, etc) to stay hydrated. You can try and eat a small bland meal (crackers, etc) after you have stopped vomiting for 12 hours. Return to the emergency room if your vomiting becomes much worse and you are no longer able to keep fluids down, if you begin to feel dehydrated, if you develop a fever, pass out, become disoriented, begin vomiting blood, have bloody diarrhea, or you feel like you need additional emergency care. You can also see your primary care doctor if your symptoms do not improve. Print Language: MALAGASY - Post Discharge Activity
[2018-06-11 21:44] LABS: ANION GAP 8 MMOL/L (8-16); BLOOD UREA NITROGEN 28 mg/dL (7-18); CALCIUM 8.1 mg/dL (8.5-10.1); CHLORIDE 98 mmol/L (98-107); CO2 29 mmol/L (21-32); CREATININE 2.1 mg/dL (0.55-1.3); GLUCOSE,RANDOM 104 mg/dL (74-106); POTASSIUM 4.3 mmol/L (3.5-5.1); SODIUM 135 mmol/L (136-145)
[2018-06-11 22:06] VITALS: BP 117/75; PULSE 78
--- NOTE | 2018-06-12 10:33 | EKG ---
Test Reason : Blood Pressure : / mmHG Vent. Rate : 075 BPM Atrial Rate : 075 BPM P-R Int : 226 ms QRS Dur : 092 ms QT Int : 490 ms P-R-T Axes : 062 027 046 degrees QTc Int : 547 ms SINUS RHYTHM WITH 1ST DEGREE A-V BLOCK PROLONGED QT ABNORMAL ECG WHEN COMPARED WITH ECG OF 29-DEC-2017 13:51, NO SIGNIFICANT CHANGE WAS FOUND Confirmed by PAPO DE LEON MD ([id number]) on 06/12/2018 10:33:04 AM Referred By: Confirmed By:PAPO DE LEON MD
== END 2018-06-12 01:32 | disposition home or self-care (01) ==
LOC: JER 16:44
DX: R11.2 Nausea with vomiting, unspecified (principal); I10 Essential (primary) hypertension; E11.9 Type 2 diabetes mellitus without complications; Z79.84 Long term (current) use of oral hypoglycemic drugs; E03.9 Hypothyroidism, unspecified; Z86.73 Personal history of transient ischemic attack (TIA), and cerebral infarction without residual deficits; Z88.8 Allergy status to other drugs, medicaments and biological substances
CPT/HCPCS: 36415; 71045-TC-FY; 80048; 80053; 83735; 84484; 85027; 93005; 93010; 99281-25

== ENCOUNTER 2018-11-17 14:08 | Emergency (ER) | payer OTHER, BC ==
[2018-11-17 15:10] VITALS: TEMP 98; BMI 43.3
--- NOTE | 2018-11-17 16:05 | PDOC ---
Attending Attestation - Resident Resident Name: Josse Brandt - ED Attending Attestation I have performed the following: I have examined & evaluated the patient, The case was reviewed & discussed with the resident, I agree w/resident's findings & plan, Exceptions are as noted - HPI HPI: 11/17/18 16:10 78y F hx of htn, NIDDM presents with vomiting. Per aide, the patient was doing well yesterday and this morning, she had some penne ala vodka and vomited several times that was nbnb and not coffee grounds. enroute, she continued to vomit and had a few episodes of vomit that was dark brown in color in the ambulance. Per aide,t eh pt had similar episode in the past - upon review of records, pt was admitted and evaluated by GI, was oferd EGD but pt dclined. dsicussed with the pts brother. pt has no hx of etoh abuse. Pt denies any other symptoms incuding fever/chills, cp, sob, abd pain, melena, bpr. per aide who cleans her bedside commode, her stools have been brown. - Physicial Exam PE: 11/17/18 16:16 Physical Exam: General: No acute distress HEENT: atraumatic Card: rr, no mrg Pulm: cta bl Abd: obese abd, no tenderness - Medical Decision Making 11/17/18 16:16 suspect possible miguel-wiess tear will continue to observe and check hbg stool guaiac pending 11/17/18 17:10 pt refuses rectal exam and understands the risks - states she is a 'bleeder' 11/17/18 18:48 labs reviewed no anemia or elevated BUN cr at baseline will obtain repeat hbg at 9pm, if no further episodes of vomiting and stable hbg , anticipate dc will sign out to evening team for eraessess/dispo
--- NOTE | 2018-11-17 16:07 | PDOC ---
History of Present Illness <Roseanne Taylor - Last Filed: 11/17/18 21:33> - History of Present Illness Initial Comments: 11/17/18 17:03 78y/o F hx of t2dm, htn, hypothyroidism, previous episodes of coffee ground emesis presenting to the ED with 1 day of hematemesis. Per her aide,she had some penne lakshmi vodka today and began vomiting right afterwards. The pt is quite irritable and is refusing to be examined " wants to be left to sleep". She denied any pain at time of conversation and vomiting has stopped. Her aide has not noticed any bloody stools,diarrhea, fevers or chills. Pt was seen in the hospital last year for similiar presentation.EGD to rule out PUD/ other etiology was recommended by GI at the time but patient refused. She received protonix and Reglan and was discharged home when vomiting resolved. 11/19/18 11:34 <Josse Brandt - Last Filed: 11/19/18 11:37> - General Chief Complaint: Coffee Ground Emesis Stated Complaint: Nausea/Vomiting Time Seen by Provider: 11/17/18 15:52 Past History <Roseanne Taylor - Last Filed: 11/17/18 21:33> - Past Medical History CVA: Yes (Small TIA's) COPD: No Diabetes: Yes (Type 2) HTN: Yes Thyroid Disease: Yes (Hypothyroidism) - Surgical History Orthopedic Surgery: Yes (Fracture left ankle, Right shoulder, no surgery, Fracture ribs) - Immunization History Immunization Up to Date: Yes - Suicide/Smoking/Psychosocial Hx Smoking History: Unknown if ever smoked Have you smoked in the past 12 months: No Number of Cigarettes Smoked Daily: 0 Information on smoking cessation initiated: No Hx Alcohol Use: No Drug/Substance Use Hx: No Substance Use Type: None Hx Substance Use Treatment: No <Josse Brandt - Last Filed: 11/19/18 11:37> - Past Medical History Allergies/Adverse Reactions: Allergies Allergy/AdvReac Type Severity Reaction Status Date / Time linagliptin [From Tradjenta] Allergy Mild Rash Verified 11/17/18 15:10 amoxicillin [Amoxicillin] Allergy Verified 11/17/18 15:10 ciprofloxacin [From Cipro] Allergy Verified 11/17/18 15:10 ciprofloxacin HCl Allergy Verified 11/17/18 15:10 [From Cipro] doxycycline Allergy Verified 11/17/18 15:10 iron Allergy Verified 11/17/18 15:10 metformin Allergy Verified 11/17/18 15:10 scopolamine Allergy Verified 11/17/18 15:10 [From Transderm-Scop] lactose AdvReac Verified 11/17/18 15:10 Home Medications: Ambulatory Orders Furosemide [Lasix -] 40 mg PO BID 12/30/17 Levothyroxine [Synthroid -] 0.1 mg PO DAILY 12/30/17 Metoprolol Succinate [Toprol XL -] 100 mg PO BID 12/30/17 Glipizide [Glucotrol -] 5 mg PO DAILY@0700 tablet 12/31/17 Pantoprazole Sodium [Protonix -] 40 mg PO DAILY tablet.ec 12/31/17 Review of Systems - Review of Systems Able to Perform ROS?: No Comments:: 11/17/18 17:16 pt uncooperative <Josse Brandt - Last Filed: 11/19/18 11:37> *Physical Exam - Vital Signs Last Vital Signs Temp Pulse Resp BP Pulse Ox 98.0 F 76 16 162/80 97 11/17/18 14:09 11/17/18 14:09 11/17/18 14:09 11/17/18 14:09 11/17/18 14:09 <Roseanne Taylor - Last Filed: 11/17/18 21:33> - Vital Signs Last Vital Signs Temp Pulse Resp BP Pulse Ox 98.0 F 76 16 162/80 97 11/17/18 14:09 11/17/18 14:09 11/17/18 14:09 11/17/18 14:09 11/17/18 14:09 - Physical Exam Comments: 11/17/18 17:17 ltd due to patients refusal. Palpation of stomach attempted no signs of distress from patient General Appearance: Yes: Nourished. No: Apparent Distress, Intoxicated Gastrointestinal/Abdominal: negative: Tenderness <Josse Brandt - Last Filed: 11/19/18 11:37> ED Treatment Course - LABORATORY CBC & Chemistry Diagram: 11/17/18 20:49 11/17/18 17:45 - ADDITIONAL ORDERS Additional order review: Laboratory Results 11/17/18 11/17/18 11/17/18 17:45 17:45 17:45 PT with INR 14.40 H INR 1.22 H PTT (Actin FS) 33.3 Sodium 139 Potassium 4.1 Chloride 99 Carbon Dioxide 31 Anion Gap 9 BUN 23.1 H Creatinine 1.8 H Est GFR (CKD-EPI)AfAm 31.14 Est GFR (CKD-EPI)NonAf 26.87 Random Glucose 187 H Calcium 8.2 L Total Bilirubin 0.4 AST 16 ALT 13 Alkaline Phosphatase 232 H Total Protein 7.2 Albumin 3.4 Blood Type Antibody Screen 11/17/18 17:45 PT with INR INR PTT (Actin FS) Sodium Potassium Chloride Carbon Dioxide Anion Gap BUN Creatinine Est GFR (CKD-EPI)AfAm Est GFR (CKD-EPI)NonAf Random Glucose Calcium Total Bilirubin AST ALT Alkaline Phosphatase Total Protein Albumin Blood Type O POSITIVE Antibody Screen Negative 11/17/18 11/17/18 20:49 17:45 RBC 4.36 4.50 MCV 86.6 87.0 MCHC 32.4 32.3 RDW 15.0 15.0 MPV 9.1 8.9 Neutrophils % 84.8 H 90.1 H Lymphocytes % 10.1 D 6.6 L D Monocytes % 4.5 2.9 L Eosinophils % 0.1 0.1 Basophils % 0.5 0.3 <Roseanne Taylor - Last Filed: 11/17/18 21:33> - LABORATORY CBC & Chemistry Diagram: 11/17/18 20:49 11/17/18 17:45 <Josse Brandt - Last Filed: 11/19/18 11:37> Medical Decision Making - Medical Decision Making 11/17/18 17:04 78y/o F hx of t2dm, htn, hypothyroidism, previous episodes of emesis presenting to the ED with 1 day of hematemesis. Pt has refused rectal exam and stool guiac, refusing further examination. Agreed to bloodwork so she can be left to sleep afterwards. Is not in any acute distress, denies any pain at the moment. Pressing on her stomach briefly as we spoke, no signs of tenderness or guarding. Would not allow further examination. Labs/Imaging/Meds cbc, cmp, pt/inr,ptt, type and screen <Josse Brandt - Last Filed: 11/19/18 11:37> *DC/Admit/Observation/Transfer - Discharge Dispostion Decision to Admit order: No <Roseanne Taylor - Last Filed: 11/17/18 21:33> <Josse Brandt - Last Filed: 11/19/18 11:37> Diagnosis at time of Disposition: Vomiting Qualifiers: Vomiting type: hematemesis Nausea presence: unspecified Qualified Code(s): K92.0 - Hematemesis - Discharge Dispostion Disposition: HOME Condition at time of disposition: Good - Referrals Referrals: Sri Owens MD [Staff Physician] - Inder Chase MD [Primary Care Provider] - - Patient Instructions Printed Discharge Instructions: DI for Vomiting -- Adult Additional Instructions: You were evaluated today for your vomiting. All of your labs showed no concerning findings. At this time you are safe for discharge home. Please make an appointment for follow up evaluation with your primary care doctor as well as a meat processing center manager for evaluation of your vomiting. We have provided a referral or you can ask your primary care doctor for a referral. Your care is not complete until you are evaluated by your primary care doctor and a meat processing center manager. Return to the Emergency Department for any new/worsening/concerning symptoms. - Post Discharge Activity
[2018-11-17 18:05] LABS: BASO % 0.3 % (0-2.0); EOS % 0.1 % (0-4.5); HEMATOCRIT 39.1 % (32.4-45.2); HEMOGLOBIN 12.7 GM/dL (10.7-15.3); LYMPH % 6.6 % (8-40); MCH 28.1 pg (25.7-33.7); MCHC 32.3 g/dl (32.0-36.0); MEAN PLT VOLUME 8.9 fl (7.5-11.1); MONO % 2.9 % (3.8-10.2); NEUT % 90.1 % (42.8-82.8); PLATELET COUNT 137 K/MM3 (134-434)
[2018-11-17 18:15] LABS: INR 1.22 (0.83-1.09); PROTHROMBIN TIME (PATIENT) 14.4 SEC (9.7-13.0)
[2018-11-17 18:24] LABS: ALBUMIN 3.4 g/dl (3.4-5.0); BILIRUBIN,TOTAL 0.4 mg/dL (0.2-1); BLOOD UREA NITROGEN 23.1 mg/dL (7-18); CALCIUM 8.2 mg/dL (8.5-10.1); CREATININE 1.8 mg/dL (0.55-1.3); POTASSIUM 4.1 mmol/L (3.5-5.1); TOT PROT 7.2 g/dl (6.4-8.2)
[2018-11-17 21:15] LABS: BASO % 0.5 % (0-2.0); EOS % 0.1 % (0-4.5); HEMATOCRIT 37.8 % (32.4-45.2); HEMOGLOBIN 12.2 GM/dL (10.7-15.3); LYMPH % 10.1 % (8-40); MCH 28.1 pg (25.7-33.7); MCHC 32.4 g/dl (32.0-36.0); MEAN CELL VOLUME 86.6 fl (80-96); MEAN PLT VOLUME 9.1 fl (7.5-11.1); MONO % 4.5 % (3.8-10.2); NEUT % 84.8 % (42.8-82.8); PLATELET COUNT 149 K/MM3 (134-434); RBC 4.36 M/mm3 (3.60-5.2); WHITE BLOOD COUNT 7.4 K/mm3 (4.0-10.0)
--- NOTE | 2018-11-17 21:35 | PDOC ---
*Physical Exam - Vital Signs Last Vital Signs Temp Pulse Resp BP Pulse Ox 98.0 F 76 16 162/80 97 11/17/18 14:09 11/17/18 14:09 11/17/18 14:09 11/17/18 14:09 11/17/18 14:09 ED Treatment Course - LABORATORY CBC & Chemistry Diagram: 11/17/18 20:49 11/17/18 17:45 - ADDITIONAL ORDERS Additional order review: Laboratory Results 11/17/18 11/17/18 11/17/18 17:45 17:45 17:45 PT with INR 14.40 H INR 1.22 H PTT (Actin FS) 33.3 Sodium 139 Potassium 4.1 Chloride 99 Carbon Dioxide 31 Anion Gap 9 BUN 23.1 H Creatinine 1.8 H Est GFR (CKD-EPI)AfAm 31.14 Est GFR (CKD-EPI)NonAf 26.87 Random Glucose 187 H Calcium 8.2 L Total Bilirubin 0.4 AST 16 ALT 13 Alkaline Phosphatase 232 H Total Protein 7.2 Albumin 3.4 Blood Type Antibody Screen 11/17/18 17:45 PT with INR INR PTT (Actin FS) Sodium Potassium Chloride Carbon Dioxide Anion Gap BUN Creatinine Est GFR (CKD-EPI)AfAm Est GFR (CKD-EPI)NonAf Random Glucose Calcium Total Bilirubin AST ALT Alkaline Phosphatase Total Protein Albumin Blood Type O POSITIVE Antibody Screen Negative 11/17/18 11/17/18 20:49 17:45 RBC 4.36 4.50 MCV 86.6 87.0 MCHC 32.4 32.3 RDW 15.0 15.0 MPV 9.1 8.9 Neutrophils % 84.8 H 90.1 H Lymphocytes % 10.1 D 6.6 L D Monocytes % 4.5 2.9 L Eosinophils % 0.1 0.1 Basophils % 0.5 0.3 Medical Decision Making - Medical Decision Making 11/17/18 21:34 Patient signed out by Dr. Saha-Pritesh @ [id number] 78 y/o female with a PMHx of HTN, Hypothyroidism, ? Coffee ground emesis ( declined EGD), presents to ED with brown colored emesis. No anemia, BUN stable. Patient refused FOBT. Pending repeat Hb @ 2100 will d/c home Repeat Hb stable @ 12.2, patient expressing a desire for discharge. Will D/C home with GI referral. I discussed the physical exam findings, ancillary test results and final diagnoses with the patient. I answered all of the patient's questions. The patient was satisfied with the care received and felt comfortable with the discharge plan and treatment plan. The patient will return to the Emergency Department with any new, persistent or worsening symptoms. *DC/Admit/Observation/Transfer Diagnosis at time of Disposition: Vomiting - Discharge Dispostion Disposition: HOME Condition at time of disposition: Good - Referrals Referrals: Inder Chase MD [Primary Care Provider] - Sri Owens MD [Staff Physician] - - Patient Instructions Printed Discharge Instructions: DI for Vomiting -- Adult Additional Instructions: You were evaluated today for your vomiting. All of your labs showed no concerning findings. At this time you are safe for discharge home. Please make an appointment for follow up evaluation with your primary care doctor as well as a final assembler for evaluation of your vomiting. We have provided a referral or you can ask your primary care doctor for a referral. Your care is not complete until you are evaluated by your primary care doctor and a final assembler. Return to the Emergency Department for any new/worsening/concerning symptoms. - Post Discharge Activity
[2018-11-17 22:41] VITALS: BP 133/67; PULSE 62
== END 2018-11-17 22:56 | disposition home or self-care (01) ==
LOC: JER 14:08
DX: K92.0 Hematemesis (principal); E03.9 Hypothyroidism, unspecified; I10 Essential (primary) hypertension; E11.9 Type 2 diabetes mellitus without complications
CPT/HCPCS: 36415; 80053; 85025; 85610; 85730; 86850; 86900; 86901; 99282-25

== ENCOUNTER 2022-09-25 13:54 | Emergency (ER) | payer OTHER, BC ==
[2022-09-25 14:17] VITALS: BP 148/100; PULSE 47; RESP 18; TEMP 97.7; BMI 29.5
== END 2022-09-25 16:16 | disposition home or self-care (01) ==
LOC: JER 13:54
DX: R22.43 Localized swelling, mass and lump, lower limb, bilateral (principal)
CPT/HCPCS: 93005; 93010; 93970-TC; 99284-25

== ENCOUNTER 2023-07-16 15:11 | Inpatient (IN) | payer OTHER, BC ==
[2023-07-16] MEDS ORDERED: MEROPENEM 1 GM VIAL (RESTRICTED TO ID) IVPB ONE (17:26)
[2023-07-16 17:27] LABS: BASO % 0.6 % (0-2.0); EOS % 1.4 % (0-4.5); HEMATOCRIT 37.5 % (32.4-45.2); HEMOGLOBIN 12.5 GM/dL (10.7-15.3); LYMPH % 14.8 % (8-40); MCH 32.6 pg (25.7-33.7); MCHC 33.3 g/dl (32.0-36.0); MEAN PLT VOLUME 8.7 fl (7.5-11.1); MONO % 5.8 % (3.8-10.2); NEUT % 77.4 % (42.8-82.8); PLATELET COUNT 131 10^3/uL (134-434); RBC 3.83 M/mm3 (3.60-5.2); RDW 15.2 % (11.6-15.6); WHITE BLOOD COUNT 4.9 K/mm3 (4.0-10.0)
[2023-07-16 17:33] LABS: INR 1.13 (0.83-1.09); PROTHROMBIN TIME (PATIENT) 12.7 SEC (9.7-13.0)
[2023-07-16 17:35] LABS: ACTIVATED PTT 32.1 SECONDS (25.2-36.5)
[2023-07-16] MEDS: MEROPENEM 1 GM in DEXTROSE 5%-WATER 100 ML IVPB ONE (17:45)
[2023-07-16 18:05] LABS: POTASSIUM 4.4 mmol/L (3.5-5.1)
[2023-07-16 18:06] LABS: BLOOD UREA NITROGEN 23.6 mg/dL (7-18)
[2023-07-16 18:07] LABS: CALCIUM 8.8 mg/dL (8.5-10.1); MAGNESIUM 2.4 mg/dL (1.8-2.4)
[2023-07-16 18:08] LABS: ALBUMIN 3.2 g/dl (3.4-5.0)
[2023-07-16 18:12] LABS: BILIRUBIN,TOTAL 0.4 mg/dL (0.2-1); CREATININE 2.4 mg/dL (0.55-1.3); TOT PROT 6.7 g/dl (6.4-8.2)
[2023-07-16 18:31] LABS: ERYTHROCYTE SEDIMENTATION RATE 40 mm/hr (0-30)
[2023-07-16] MEDS ORDERED: ENOXAPARIN NA (PORCINE) 60 MG/0.6 ML DISP.SYRIN SQ ONE (18:37)
[2023-07-16] MEDS: ENOXAPARIN NA (PORCINE) 40 MG/0.4 ML DISP.SYRIN SQ ONE (19:02)
[2023-07-17 02:58] VITALS: BMI 29.7
[2023-07-17] MEDS: FUROSEMIDE 40 MG TABLET (FP) PO ONE (09:37)
[2023-07-17] MEDS: CEFTRIAXONE 1 GM in DEXTROSE 5%-WATER - 50 ML IVPB ONE (09:48)
[2023-07-17] MEDS: ENOXAPARIN NA (PORCINE) 40 MG/0.4 ML DISP.SYRIN SQ SCH (09:48)
[2023-07-17 10:10] LABS: BASO % 0.6 % (0-2.0); EOS % 1.7 % (0-4.5); HEMATOCRIT 39.1 % (32.4-45.2); HEMOGLOBIN 12.9 GM/dL (10.7-15.3); LYMPH % 16.7 % (8-40); MCH 32.3 pg (25.7-33.7); MCHC 33.1 g/dl (32.0-36.0); MEAN CELL VOLUME 97.6 fl (80-96); MONO % 5.3 % (3.8-10.2); NEUT % 75.7 % (42.8-82.8); PLATELET COUNT 174 10^3/uL (134-434); RDW 15.3 % (11.6-15.6); WHITE BLOOD COUNT 6.9 K/mm3 (4.0-10.0)
[2023-07-17 10:28] LABS: POTASSIUM 4.5 mmol/L (3.5-5.1)
[2023-07-17 10:30] LABS: CALCIUM 8.7 mg/dL (8.5-10.1)
[2023-07-17 10:31] LABS: BLOOD UREA NITROGEN 22.6 mg/dL (7-18)
[2023-07-17 10:34] LABS: CREATININE 2.3 mg/dL (0.55-1.3)
[2023-07-17 10:35] LABS: TOT PROT 6.6 g/dl (6.4-8.2)
[2023-07-17 10:36] LABS: BILIRUBIN,TOTAL 0.6 mg/dL (0.2-1)
[2023-07-17] MEDS: POLYETHYLENE GLYCOL (HEALTHYLAX) 3350 17 GM PACKET PO ONE (21:31)
[2023-07-18] MEDS: LEVOTHYROXINE NA 50 MCG TABLET (FP) PO SCH (06:28)
[2023-07-18] MEDS: POLYETHYLENE GLYCOL (HEALTHYLAX) 3350 17 GM PACKET PO SCH (10:00)
[2023-07-18] MEDS: FUROSEMIDE 40 MG TABLET (FP) PO SCH (10:00)
[2023-07-18] MEDS: AMMONIUM LACTATE 12% LOTION 225 GM BOTTLE TP SCH (13:13)
[2023-07-18] MEDS ORDERED: LORazepam 2 MG/ML SDV VIAL IVPUSH ONE (14:10)
[2023-07-18] MEDS: LORazepam 2 MG/ML SDV VIAL IVPUSH ONE (19:52)
[2023-07-19 09:16] LABS: BASO % 0.4 % (0-2.0); EOS % 1.3 % (0-4.5); HEMATOCRIT 35.7 % (32.4-45.2); HEMOGLOBIN 11.9 GM/dL (10.7-15.3); MCH 32.4 pg (25.7-33.7); MCHC 33.2 g/dl (32.0-36.0); MEAN CELL VOLUME 97.5 fl (80-96); MEAN PLT VOLUME 8.7 fl (7.5-11.1); MONO % 5.7 % (3.8-10.2); NEUT % 78.6 % (42.8-82.8); PLATELET COUNT 116 10^3/uL (134-434); RBC 3.66 M/mm3 (3.60-5.2); RDW 14.6 % (11.6-15.6); WHITE BLOOD COUNT 4.7 K/mm3 (4.0-10.0)
[2023-07-19 09:44] LABS: POTASSIUM 3.8 mmol/L (3.5-5.1)
[2023-07-19 10:06] LABS: BLOOD UREA NITROGEN 27.9 mg/dL (7-18); CALCIUM 8.6 mg/dL (8.5-10.1)
[2023-07-20] MEDS: NAPROXEN 500 MG TABLET PO ONE (17:21)
[2023-07-20] MEDS: NAPROXEN 500 MG TABLET PO SCH (21:31)
[2023-07-20 22:00] VITALS: RESP 18
[2023-07-21] MEDS ORDERED: POLYETHYLENE GLYCOL (HEALTHYLAX) 3350 17 GM PACKET PO SCH (10:00)
[2023-07-21] MEDS: CITALOPRAM HYDROBROMIDE 10 MG TABLET PO SCH (10:02)
[2023-07-21] MEDS: PANTOPRAZOLE 40 MG TABLET PO SCH (10:03)
[2023-07-21] MEDS: POLYETHYLENE GLYCOL (HEALTHYLAX) 3350 17 GM PACKET PO SCH (10:03)
[2023-07-21 11:16] LABS: POTASSIUM 4.1 mmol/L (3.5-5.1)
[2023-07-21 11:17] LABS: CALCIUM 8.5 mg/dL (8.5-10.1)
[2023-07-21 11:18] LABS: BLOOD UREA NITROGEN 39.1 mg/dL (7-18)
[2023-07-21 11:21] LABS: CREATININE 2.6 mg/dL (0.55-1.3)
[2023-07-21] MEDS: SODIUM PHOSPHATE/NA BIPHOS 133 ML ENEMA RC ONE (14:46)
[2023-07-22 08:25] LABS: POTASSIUM 3.9 mmol/L (3.5-5.1)
[2023-07-22 08:27] LABS: BLOOD UREA NITROGEN 47.7 mg/dL (7-18)
[2023-07-22 08:30] LABS: CREATININE 2.8 mg/dL (0.55-1.3)
[2023-07-22 14:38] VITALS: BP 145/63; PULSE 87; TEMP 98.3
== END 2023-07-22 15:20 | disposition home health service (06) | DRG 603 ==
LOC: JER 15:11 → JERBED 16:16 → J8W 20:02 → OBSVTOIN 07-17 10:22
PROVIDERS: ADMIT Family Medicine; ATTEND Family Medicine
PROC: 0HBRXZZ Excision of Toe Nail, External Approach (ICD-10-PCS; principal; 2023-07-18)
PROC: 0HBRXZZ Excision of Toe Nail, External Approach (ICD-10-PCS; 2023-07-18)
PROC: 0HBRXZZ Excision of Toe Nail, External Approach (ICD-10-PCS; 2023-07-18)
PROC: 0HBRXZZ Excision of Toe Nail, External Approach (ICD-10-PCS; 2023-07-18)
PROC: 0HBRXZZ Excision of Toe Nail, External Approach (ICD-10-PCS; 2023-07-18)
PROC: 0HBRXZZ Excision of Toe Nail, External Approach (ICD-10-PCS; 2023-07-18)
PROC: 0HBRXZZ Excision of Toe Nail, External Approach (ICD-10-PCS; 2023-07-18)
PROC: 0HBRXZZ Excision of Toe Nail, External Approach (ICD-10-PCS; 2023-07-18)
PROC: 0HBRXZZ Excision of Toe Nail, External Approach (ICD-10-PCS; 2023-07-18)
PROC: 0HBRXZZ Excision of Toe Nail, External Approach (ICD-10-PCS; 2023-07-18)
DX: L03.116 Cellulitis of left lower limb (principal); L97.528 Non-pressure chronic ulcer of other part of left foot with other specified severity; L97.518 Non-pressure chronic ulcer of other part of right foot with other specified severity; E11.621 Type 2 diabetes mellitus with foot ulcer; I10 Essential (primary) hypertension; E03.9 Hypothyroidism, unspecified; H91.93 Unspecified hearing loss, bilateral; I73.9 Peripheral vascular disease, unspecified; B35.1 Tinea unguium; L85.3 Xerosis cutis; F41.8 Other specified anxiety disorders; R26.89 Other abnormalities of gait and mobility
CPT/HCPCS: 0241U-QW; 36415; 73630-TC-LT; 73630-TC-RT-FY; 80048; 80053; 83605; 83735; 84436; 84439; 84443; 85025; 85610; 85651; 85730; 86140; 86850; 86900; 86901; 87040; 93005; 93010; 93922; 99285-25; G0378

== ENCOUNTER 2023-09-07 12:47 | Inpatient (IN) | payer OTHER, BC ==
[2023-09-07 13:59] LABS: HEMATOCRIT 34.2 % (32.4-45.2); HEMOGLOBIN 11.3 GM/dL (10.7-15.3); MCH 31.9 pg (25.7-33.7); MCHC 33.2 g/dl (32.0-36.0); MEAN CELL VOLUME 96.2 fl (80-96); MEAN PLT VOLUME 9.1 fl (7.5-11.1); PLATELET COUNT 174 10^3/uL (134-434); RBC 3.55 M/mm3 (3.60-5.2); RDW 14.9 % (11.6-15.6); WHITE BLOOD COUNT 9.8 K/mm3 (4.0-10.0)
[2023-09-07 14:05] LABS: INR 1.16 (0.83-1.09); PROTHROMBIN TIME (PATIENT) 13.1 SEC (9.7-13.0)
[2023-09-07 14:07] LABS: VENOUS BASE EXCESS -3.1 mmol/L (-2-2); VENOUS O2 SATURATION 63.1 % (70-80); VENOUS PCO2 46.4 mmHg (38-52); VENOUS PH 7.316 (7.310-7.410)
[2023-09-07 14:08] LABS: ACTIVATED PTT 29.8 SECONDS (25.2-36.5)
[2023-09-07 14:19] LABS: POTASSIUM 4.2 mmol/L (3.5-5.1)
[2023-09-07 14:21] LABS: CALCIUM 8.9 mg/dL (8.5-10.1)
[2023-09-07 14:22] LABS: ALBUMIN 2.6 g/dl (3.4-5.0)
[2023-09-07 14:23] LABS: BLOOD UREA NITROGEN 45.3 mg/dL (7-18)
[2023-09-07 14:25] LABS: CREATININE 3.3 mg/dL (0.55-1.3)
[2023-09-07 14:27] LABS: TOT PROT 6.5 g/dl (6.4-8.2)
[2023-09-07 14:28] LABS: BILIRUBIN,TOTAL 0.8 mg/dL (0.2-1)
[2023-09-07 14:41] LABS: ANISOCYTOSIS 0; HELMET CELLS 0; HOWELL-JOLLY BODIES 0; MACROCYTOSIS 0; OVALOCYTE 0; ROULEAU 0; SICKELED CELLS 0; TARGET CELLS 0; TEAR DROP CELLS 0; TOXIC GRANULATION 0
[2023-09-07] MEDS: SODIUM CHLORIDE 1,000 ML IV SCH (14:45)
[2023-09-07 17:29] LABS: EPI CELLS 13 /uL (0-25.1); HYALINE CASTS 4 /uL (0-3.1); URINE APPEARANCE CLEAR; URINE BACTERIA 1 /uL (0-1359); URINE BILIRUBIN NEGATIVE (NEGATIVE); URINE COLOR YELLOW; URINE GLUCOSE (UA) NEGATIVE (NEGATIVE); URINE KETONE NEGATIVE (NEGATIVE); URINE LEUK ESTERASE 1+ (NEGATIVE); URINE NITRITE NEGATIVE (NEGATIVE); URINE PROTEIN 1+ (NEGATIVE); URINE RBC 18 /uL (0-23.9); URINE WBC 72 /uL (0-25.8)
[2023-09-08] MEDS: ACETAMINOPHEN 1000 MG/100 ML BAG IVPB ONE (06:53)
[2023-09-08 09:41] LABS: HEMATOCRIT 32.6 % (32.4-45.2); HEMOGLOBIN 10.8 GM/dL (10.7-15.3); LYMPH % 6.8 % (8-40); MCH 31.7 pg (25.7-33.7); MCHC 33.2 g/dl (32.0-36.0); MEAN CELL VOLUME 95.5 fl (80-96); MEAN PLT VOLUME 8.5 fl (7.5-11.1); MONO % 6.2 % (3.8-10.2); PLATELET COUNT 187 10^3/uL (134-434); RBC 3.41 M/mm3 (3.60-5.2); RDW 14.9 % (11.6-15.6); WHITE BLOOD COUNT 7.1 K/mm3 (4.0-10.0)
[2023-09-08] MEDS: CLOPIDOGREL BISULFATE 75 MG TABLET (FP) PO SCH (09:50)
[2023-09-08 09:55] LABS: POTASSIUM 3.7 mmol/L (3.5-5.1)
[2023-09-08 09:56] LABS: CALCIUM 8.3 mg/dL (8.5-10.1)
[2023-09-08 09:57] LABS: ALBUMIN 2.4 g/dl (3.4-5.0); BLOOD UREA NITROGEN 42.7 mg/dL (7-18)
[2023-09-08 10:00] LABS: CREATININE 2.9 mg/dL (0.55-1.3)
[2023-09-08 10:01] LABS: TOT PROT 6.3 g/dl (6.4-8.2)
[2023-09-08 10:02] LABS: BILIRUBIN,TOTAL 0.4 mg/dL (0.2-1)
[2023-09-08] MEDS: DEXTROSE 5%-0.45% SALINE 1,000 ML IV ONE (15:59)
[2023-09-08 21:13] LABS: URINE APPEARANCE CLEAR; URINE BILIRUBIN NEGATIVE (NEGATIVE); URINE COLOR YELLOW; URINE GLUCOSE (UA) NEGATIVE (NEGATIVE); URINE KETONE NEGATIVE (NEGATIVE); URINE LEUK ESTERASE NEGATIVE (NEGATIVE); URINE NITRITE NEGATIVE (NEGATIVE); URINE PROTEIN TRACE (NEGATIVE); URINE UROBILINOGEN 0.2 mg/dL (0.2-1.0)
[2023-09-09] MEDS: LEVOTHYROXINE NA 100 MCG TABLET (FP) PO SCH (06:33)
[2023-09-09 07:51] LABS: POTASSIUM 3.7 mmol/L (3.5-5.1)
[2023-09-09 07:58] LABS: CALCIUM 8.2 mg/dL (8.5-10.1)
[2023-09-09 07:59] LABS: BLOOD UREA NITROGEN 39.6 mg/dL (7-18)
[2023-09-09 08:02] LABS: CREATININE 2.6 mg/dL (0.55-1.3)
[2023-09-09] MEDS ORDERED: DEXTROSE 50%-WATER 25 GM/50 ML DISP.SYRIN ONE (11:42)
[2023-09-09] MEDS ORDERED: LORazepam 1 MG TABLET PO ONE (11:45)
[2023-09-09] MEDS: DEXTROSE 50%-WATER 25 GM/50 ML DISP.SYRIN IVPUSH ONE (12:30)
[2023-09-09] MEDS: LORazepam 1 MG TABLET PO ONE (18:19)
[2023-09-09] MEDS: DEXTROSE 5%-0.45% SALINE 1,000 ML IV SCH (19:12)
[2023-09-10 09:07] LABS: BASO % 0.4 % (0-2.0); EOS % 1.2 % (0-4.5); HEMATOCRIT 36.2 % (32.4-45.2); HEMOGLOBIN 11.8 GM/dL (10.7-15.3); LYMPH % 8.3 % (8-40); MCH 31.5 pg (25.7-33.7); MCHC 32.7 g/dl (32.0-36.0); MEAN CELL VOLUME 96.3 fl (80-96); MONO % 7.7 % (3.8-10.2); NEUT % 82.4 % (42.8-82.8); PLATELET COUNT 142 10^3/uL (134-434); RBC 3.76 M/mm3 (3.60-5.2); RDW 14.6 % (11.6-15.6); WHITE BLOOD COUNT 5.4 K/mm3 (4.0-10.0)
[2023-09-10 09:32] LABS: POTASSIUM 3.7 mmol/L (3.5-5.1)
[2023-09-10 09:53] LABS: CALCIUM 7.9 mg/dL (8.5-10.1)
[2023-09-10 09:54] LABS: ALBUMIN 2.3 g/dl (3.4-5.0); BLOOD UREA NITROGEN 30.7 mg/dL (7-18)
[2023-09-10 10:01] LABS: CREATININE 1.9 mg/dL (0.55-1.3)
[2023-09-10 10:03] LABS: TOT PROT 5.8 g/dl (6.4-8.2)
[2023-09-10 10:04] LABS: BILIRUBIN,TOTAL 0.3 mg/dL (0.2-1)
[2023-09-11 07:33] LABS: BASO % 0.2 % (0-2.0); EOS % 1.5 % (0-4.5); HEMATOCRIT 35.4 % (32.4-45.2); HEMOGLOBIN 12.1 GM/dL (10.7-15.3); LYMPH % 9.8 % (8-40); MCH 32.5 pg (25.7-33.7); MCHC 34.3 g/dl (32.0-36.0); MEAN CELL VOLUME 94.7 fl (80-96); MEAN PLT VOLUME 8.1 fl (7.5-11.1); MONO % 9.6 % (3.8-10.2); NEUT % 78.9 % (42.8-82.8); PLATELET COUNT 147 10^3/uL (134-434); RBC 3.73 M/mm3 (3.60-5.2); RDW 14.9 % (11.6-15.6); WHITE BLOOD COUNT 8.5 K/mm3 (4.0-10.0)
[2023-09-11 07:49] LABS: POTASSIUM 3.8 mmol/L (3.5-5.1)
[2023-09-11 07:54] LABS: CALCIUM 8.2 mg/dL (8.5-10.1)
[2023-09-11 07:55] LABS: BLOOD UREA NITROGEN 24.8 mg/dL (7-18)
[2023-09-11 07:57] LABS: CREATININE 1.8 mg/dL (0.55-1.3)
[2023-09-11] MEDS: ACETAMINOPHEN 1000 MG/100 ML BAG IVPB ONE (08:53)
[2023-09-11] MEDS: amLODIPine BESYLATE 5 MG TABLET (FP) PO SCH (11:27)
[2023-09-11] MEDS: DEXTROSE 5%-0.45% SALINE 1,000 ML IV SCH (17:24)
[2023-09-11] MEDS: OLANZapine 2.5 MG TABLET PO SCH (22:08)
[2023-09-11] MEDS: HALOPERIDOL LACTATE 5 MG/ML IM ONE (22:22)
[2023-09-12 09:23] LABS: BASO % 0.3 % (0-2.0); EOS % 1.2 % (0-4.5); HEMATOCRIT 34.9 % (32.4-45.2); HEMOGLOBIN 11.6 GM/dL (10.7-15.3); LYMPH % 12.5 % (8-40); MCH 31.8 pg (25.7-33.7); MCHC 33.3 g/dl (32.0-36.0); MEAN CELL VOLUME 95.5 fl (80-96); MONO % 5.6 % (3.8-10.2); NEUT % 80.4 % (42.8-82.8); PLATELET COUNT 138 10^3/uL (134-434); RBC 3.65 M/mm3 (3.60-5.2); RDW 14.6 % (11.6-15.6); WHITE BLOOD COUNT 9.6 K/mm3 (4.0-10.0)
[2023-09-12 09:46] LABS: POTASSIUM 4.2 mmol/L (3.5-5.1)
[2023-09-12 09:58] LABS: BLOOD UREA NITROGEN 25.8 mg/dL (7-18); CALCIUM 7.9 mg/dL (8.5-10.1)
[2023-09-12 10:01] LABS: CREATININE 1.7 mg/dL (0.55-1.3)
[2023-09-13 15:11] VITALS: BMI 30.4
[2023-09-13 16:05] VITALS: RESP 18
[2023-09-13] MEDS: ZINC SULFATE 220 MG CAPSULE (FP) PO SCH (17:00)
[2023-09-13] MEDS: ASCORBIC ACID 500 MG TABLET (FP) PO SCH (17:01)
[2023-09-13] MEDS: MULTIVITAMINS (DAILY MVI) TABLET (FP) PO SCH (17:01)
[2023-09-14 07:46] LABS: POTASSIUM 4.2 mmol/L (3.5-5.1)
[2023-09-14 07:49] LABS: BLOOD UREA NITROGEN 29.4 mg/dL (7-18); CALCIUM 7.8 mg/dL (8.5-10.1)
[2023-09-14 07:53] LABS: CREATININE 2.1 mg/dL (0.55-1.3)
[2023-09-15 06:06] VITALS: BP 128/76; PULSE 77; TEMP 97.9
[2023-09-15 08:46] LABS: POTASSIUM 4.8 mmol/L (3.5-5.1)
[2023-09-15 08:48] LABS: BLOOD UREA NITROGEN 28.4 mg/dL (7-18)
[2023-09-15 08:51] LABS: CREATININE 1.8 mg/dL (0.55-1.3)
[2023-09-15 08:53] LABS: CALCIUM 8.1 mg/dL (8.5-10.1)
== END 2023-09-15 14:49 | DRG 65 ==
LOC: JER 12:47 → JERBED 15:08 → J4W 09-08 03:28
PROVIDERS: ADMIT Family Medicine; ATTEND Family Medicine
DX: I63.89 Other cerebral infarction (principal); E87.1 Hypo-osmolality and hyponatremia; N17.9 Acute kidney failure, unspecified; I69.351 Hemiplegia and hemiparesis following cerebral infarction affecting right dominant side; E03.9 Hypothyroidism, unspecified; R29.711 NIHSS score 11; F41.9 Anxiety disorder, unspecified; R47.01 Aphasia; H91.93 Unspecified hearing loss, bilateral; I12.9 Hypertensive chronic kidney disease with stage 1 through stage 4 chronic kidney disease, or unspecified chronic kidney disease; E11.22 Type 2 diabetes mellitus with diabetic chronic kidney disease; N18.9 Chronic kidney disease, unspecified; I25.10 Atherosclerotic heart disease of native coronary artery without angina pectoris; Z99.3 Dependence on wheelchair
CPT/HCPCS: 36415; 70450-TC; 70551-TC; 71045-TC-FY; 76775-TC; 80048; 80053; 80061; 81003; 82550; 82803; 82962; 83036; 83605; 84443; 84484; 85025; 85610; 85730; 86850; 86900; 86901; 87040; 87635; 93005; 93010; 93880-TC; 93971; 97161-GP; 99285-25; J0131